=== PATIENT | male | born 1960 | race Caucasian/White ===

== ENCOUNTER 2017-07-18 06:02 | Day surgery (SDC) | payer BC ==
[2017-07-18] MEDS ORDERED: Midazolam 1 MG/ML 2 ML SDV IV ONE ×7 (06:03→07:09)
[2017-07-18] MEDS ORDERED: fentaNYL 100 MCG/2 ML SDV IV ONE ×3 (06:03→07:04)
[2017-07-18] MEDS ORDERED: Midazolam 1 MG/ML 2 ML SDV ONE (06:06)
[2017-07-18] MEDS ORDERED: fentaNYL 100 MCG/2 ML SDV ONE (06:06)
[2017-07-18] MEDS ORDERED: Dextrose 5%-0.45% NaCl 1,000 ML IV SCH (07:00)
[2017-07-18] MEDS ORDERED: Sodium Chloride 0.9% 10 ML Syringe FLUSH PRN (07:00)
[2017-07-18 09:32] VITALS: BP 127/63
--- NOTE | 2017-07-18 12:38 | OR ---
DATE: 07/18/2017 PROCEDURE: Total colonoscopy. INSTRUMENT USED: CF-H180AL Olympus video colonoscope. PREMEDICATIONS: Fentanyl 100 mcg intravenous, Versed 4 mg intravenous. The procedure was done under pulse oximetry, BP recording, and school lunch monitor. INDICATION: The patient with previous colonic adenomatous. Surveillance colonoscopic examination is done for detection of any polypoid lesions and removal, endoscopic hemostasis therapy if needed. DESCRIPTION OF PROCEDURE: Initial rectal exam was unremarkable. Rigid anoscopy showed small internal hemorrhoids without bleeding from them. The colonoscope was passed with ease. Numerous scattered diverticula were noted in the distal left colon. The scope was passed with ease up to the ileocecal area, photographs were taken the normal-appearing cecum identified by landmarks of appendiceal orifice and double-bulged ileocecal folds. No bleeding was noted from any of the visualized areas at the commencement of the exam. No stricture. No vascular ectasia. No large isolated ulcerations seen. No evidence of diffuse inflammatory bowel disease in the form of friability, contact bleeding, or ulcerations. No polyp or tumor mass identified. Probing the proximal sides of folds and flexures, using adequate distention and clearing up the stool, withdrawal of the scope was made, cecum to rectum time over 6 minutes. No bleeding was noted from any of the visualized areas at the completion of examination. IMPRESSION: Diverticulosis. The patient tolerated the procedure well. [facility] /[id number]
== END 2017-07-18 09:24 | disposition home or self-care (01) ==
LOC: DL.ENDO 06:02
PROVIDERS: ATTEND Internal Medicine Gastroenterology
DX: Z12.11 Encounter for screening for malignant neoplasm of colon (principal); K57.30 Diverticulosis of large intestine without perforation or abscess without bleeding; Z88.1 Allergy status to other antibiotic agents
CPT/HCPCS: 45378; J2250; J3010; J7042

== ENCOUNTER 2018-04-12 18:23 | Emergency (ER) | payer OTHER, BC ==
[2018-04-12 19:13] LABS: ANION GAP 15.3; CHLORIDE,CL 97 mmol/L (101-111); SODIUM,NA 132 mmol/L (135-145)
[2018-04-12] MEDS ORDERED: Ketorolac 30 MG/ML SDV IVPUSH ONE (19:22)
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
== END 2018-04-12 20:32 | disposition home or self-care (01) ==
LOC: DL.ED 18:23
DX: S16.1XXA Strain of muscle, fascia and tendon at neck level, initial encounter (principal); S46.919A Strain of unspecified muscle, fascia and tendon at shoulder and upper arm level, unspecified arm, initial encounter; S39.012A Strain of muscle, fascia and tendon of lower back, initial encounter; Z88.1 Allergy status to other antibiotic agents; Z79.899 Other long term (current) drug therapy; V53.5XXA Driver of pick-up truck or van injured in collision with car, pick-up truck or van in traffic accident, initial encounter
CPT/HCPCS: 36415; 71046; 72125; 73030; 73502; 80053; 82550; 84484; 85025; 96374; 99284; J1885

== ENCOUNTER 2022-03-14 19:58 | Emergency (ER) | payer BC ==
[2022-03-14 22:01] VITALS: BP 139/79; PULSE 89
== END 2022-03-14 21:59 | disposition home or self-care (01) ==
LOC: DL.ED 19:58
DX: S80.12XA Contusion of left lower leg, initial encounter (principal); E78.00 Pure hypercholesterolemia, unspecified; I10 Essential (primary) hypertension; Z88.0 Allergy status to penicillin; Z79.899 Other long term (current) drug therapy; W22.8XXA Striking against or struck by other objects, initial encounter
CPT/HCPCS: 73700-LT; 99283